=== PATIENT | female | born 1990 | race Caucasian/White ===

== ENCOUNTER 2023-07-06 15:13 | Outpatient (RCR) | payer OTHER, SELFPAY | END 2023-08-19 11:00 | disposition home or self-care (01) | LOC: PT 15:13 | PROVIDERS: PCP Family Medicine | DX: S13.4XXD Sprain of ligaments of cervical spine, subsequent encounter (principal); S00.83XD Contusion of other part of head, subsequent encounter | CPT/HCPCS: 97012; 97110; 97140; 97161 ==